=== PATIENT | female | born 2000 | race Caucasian/White ===

== ENCOUNTER 2025-10-11 18:31 | Emergency (ER) | payer BC, SELFPAY ==
--- OUTSIDE RECORDS SUMMARY | 2024-06-21 10:00 | XMS_ITS ---
Author Organization [facility] D [facility] Address [address] [place] [address] Care Team Providers Care Regulatory Compliance Manager Name Role Phone Oneyda Marie Primary Care Provider ONEYDA MARIE Unavailable Unavaila Claudia Crawford Unavailable [phone] REASON FOR VISIT med ck Encounters Encounter Location Date Provider Diagnosis [address] [address] 06/21/2024 Claudia Mabry Plan Of Treatment No Information Progress Notes * Chely SPENCER RDOB: [birth year] (24 yo F)Acc No.[id number]:06/21/2024 Progress Notes Patient: Kory Chely nicole Provider: Madhu Mabry APRN :2000 A ge:23 Y S ex:Female Date:06/21/2024 Address:[address] [place], [place] [id number] Pcp:Oneyda Marie Subjective: * Chief Complaints: * M ed ck Billing Information: * Procedure Codes: * Electronic signature of Katiana Mabry APRN on 10/11/2025 at 07:54 PM EST Sign off status: Pending * Provider: Madhu Mabry APRN Date: 0 06/21/2024 Generated for Printi ng/Faxing/eTransmitting on: 1 12/12/2024 07:54 PM EST
--- OUTSIDE RECORDS SUMMARY | 2025-01-18 16:30 | XMS_ITS ---
Author Organization [facility] Address [address] [facility] 36 [facility] [address] [place] [address] Care Team Providers Care Porcelain Slusher Name Role Phone Oneyda Marie Primary Care Provider ONEYDA MARIE Unavailable Unavaila ble Migration, Provider Unavailable Unavailable REASON FOR VISIT Multum To Medispan Conversion Encounter Medications Medication SIG (Take, Route, Frequency, Duration) Notes Start Date End Date Status Prena1 1.4 MG Tablet Chewable 1 tab(s) chewed once a day A ctive Encounters Encounter Location Date Provider Diagnosis [facility] [address] [facility] [address] [address] 01/18/2025 Provider Migration Plan Of Treatment No Information Progress Notes * Chely SPENCER RDOB: 3 (24 yo F)Acc No.[id number]:01/18/2025 Patient: Kory Chely nicole Provider: Vasu manning Migration :2000 A ge:24 Y S ex:Female Date:01/18/2025 Address:[address] [place], [place] [id number] Pcp:Oneyda Marie Subjective: * Chief Complaints: * M ultum To Medispan Conversion Encounter * Medications: T akingPrena1 1.4 MG Tablet Chewable 1 tab(s) chewed once a day Taking Prena1 1.4 MG Tablet Chewable 1 tab(s) chewed once a day Billing Information: * Procedure Codes: * Electronic signature of Prov ider Migration on 10/11/2025 at 07:54 PM EST Sign off status: Pending * Provider: Vasu manning Migration Date: 0 01/18/2025 Generated for Maya wilson/Lino/Anahi on: 1 12/12/2024 07:54 PM EST
--- OUTSIDE RECORDS SUMMARY | 2025-09-17 16:15 | XMS_ITS | Encounter Summary ---
Author Organization [facility] Address [address] [place] [address] Care Team Providers Care Architectural Technologist Name Role Phone Claudia Dorman MACEY Primary Care Provider + Encounter Details Date Type Department Care Team (Late st Contact Info) Description 09/17/2025 4:15 PM EST Lab [facility] [address] [facility] [address] [place] [phone] Social History Tobacco Use Types Packs/Day Years Used Date Smoking Tobacco: Never Passive Smoke Exposure: Never Smokeless Tobacco: Never Alcohol Use Standard Drinks/Week Comments Never 0 (1 standard drink = 0.6 oz pur e alcohol) [facility] Utilities Answer Date Recorded In the past 12 months has [employer] electric, gas, oil, or water company threatened to shut off services in your home? No 09/11/2024 AUDIT-C Answer Date Recorded Q1: How often do you have a drink containing alcohol? Never 09/11/2024 Q2: How many drinks containi ng alcohol do you have on a typical day when you are drinking? Patient does not drink Q3: How often do you have si x or more drinks on one occasion? Never 09/11/2024 Overall Financial Resource Strain (CARDIA) Answe r Date Recorded How hard is it for you to pa y for the very basics like food, housing, medical care, and heating? Not hard at all 09/11/2024 Exercise Vital Sign Answer Date Recorde d On average, how many days pe r week do you engage in moderate to strenuous exercise (like a brisk walk)? 4 days 09/11/2024 On average, how many minutes do you engage in exercise at this level? 40 min 09/11/2024 Hunger Vital Sign Answer Date Recorded Within the past 12 months, y ou worried that your food would run out before you got the money to buy more. Never true 09/11/20 24 Within the past 12 months, t he food you bought just didn't last and you didn't have money to get more. Never true 09/11/2024 PRAPARE - Transportation Answer Date Re corded In the past 12 months, has l ack of transportation kept you from medical appointments or from getting medications? No 08/17 In the past 12 months, has l ack of transportation kept you from meetings, work, or from getting things needed for daily living? No 09/11/2024 Mcalester Depression Scale Answer Date Recorded Mcalester Depression Scale Total 4 10/23/2024 The thought of harming myself has occurred to me . Never 10/23/2024 Abuse Screen Answer Date Recorded Feels Unsafe at Home or Work/School no 09/11/2024 Feels Threatened by Someone no 08/17 Does Anyone Try to Keep You From Having Contact with Others or Doing Things Outside Your Home? no 09/11/2024 Physical Signs of Abuse Present no 09/11/2024 Housing Stability Answer Date Recorded Current Living Arrangements home 08/17 Potentially Unsafe Housing Conditions none 09/11/2024 Family and Community Support Answer Tr e Recorded If for any reason you need h elp with day-to-day activities such as bathing, preparing meals, shopping, managing finances, etc., do you get the help you need? I don't need any help 09/11/2024 How often do you feel lonely or isolated from those around you? Never 09/11/2024 Employment Answer Date Recorded Do you want help finding or keeping work or a job? I do not need or want help 09/11/2024 Disabilities Answer Date Recorded Difficulty Concentrating, Remembering or Making Decisions no 09/11/2024 Difficulty Managing Errands Independently no 09/11/2024 Education Answer Date Recorded Do you want help with school or training? For example, starting or completing job training or getting a high school diploma, GED or equivalent No 09/11/2024 Preferred Language Bengali 09/11/2024 PHQ-2 Answer Date Recorded Patient Health Questionnaire-2 Score 0 09/11/2024 Comments Unknown Sex and Gender Information Value Date Recorded Sex Assigned at Female 07/30/2025 5:59 PM EDT Legal Sex Female 10:29 AM EDT Gender Identity Not on file Sexual Orientation Straight 07/30/2025 5: 59 PM EDT documented as of this encounter Plan of Treatment Upcoming Encounters Date Type Department Care Team (Late st Contact Info) Description 10/17/2025 1:30 PM EST Ancillary Procedure [facility] [address] [phone] 10/17/2025 2:00 PM EST Initial [facility] [address] [address] Jana Beatty, BACTERIOLOGIST [place] [address] [place] [phone] documented as of this encounter Visit Diagnoses Not on filedocumented in this encounter Care Teams Architectural Technologist Relationship Specialty Start Date End Date Claudia Dorman, BACTERIOLOGIST [place] [address] [place] [address] PCP - General Nurse Practitioner 09/11/24 documented as of this encounter
--- OUTSIDE RECORDS SUMMARY | 2025-09-19 13:15 | XMS_ITS | Encounter Summary ---
Author Organization [facility] Address [address] [place] [address] Care Team Providers Care Grocery Store Manager Name Role Phone Claudia Dorman MACEY Primary Care Provider + Encounter Details Date Type Department Care Team (Late st Contact Info) Description 09/19/2025 1:15 PM EST Lab [facility] [address] [facility] [address] [place] [phone] Social History Tobacco Use Types Packs/Day Years Used Date Smoking Tobacco: Never Passive Smoke Exposure: Never Smokeless Tobacco: Never Alcohol Use Standard Drinks/Week Comments Never 0 (1 standard drink = 0.6 oz pur e alcohol) [facility] Utilities Answer Date Recorded In the past 12 months has [employer] electric, gas, oil, or water company threatened [...] things needed for daily living? No 09/11/2024 Fargo Depression Scale Answer Date Recorded Fargo Depression Scale Total 4 10/23/2024 The thought [...] GED or equivalent No 09/11/2024 Preferred Language Bulgarian 09/11/2024 PHQ-2 Answer Date Recorded Patient Health [...] Description 10/17/2025 1:30 PM EST Ancillary Procedure [facility] [address] [phone] 10/17/2025 2:00 PM EST Initial [facility] [address] [phone] Jana Beatty, PINBALL MACHINE REPAIRER [address] [place] [phone] documented as of this encounter Visit Diagnoses Not on filedocumented in this encounter Care Teams Grocery Store Manager Relationship Specialty Start Date End Date Claudia Dorman, PINBALL MACHINE REPAIRER [address] [place] [address] PCP - General Nurse Practitioner 09/11/24 documented as of this encounter
[2025-10-11 19:37] VITALS: BP 96/56; PULSE 102; RESP 22; TEMP 37.7; O2SAT 99; BMI 34.3
[2025-10-11 19:53] LABS: Coronavirus 19, PCR Not Detected (NotDetected); Influenza B, PCR Not Detected (NotDetected)
--- OUTSIDE RECORDS SUMMARY | 2025-10-11 19:54 | XMS_ITS ---
Author Organization Unknown ENCOUNTERS Encounter Performer Location Date Diagnosis Diagnosis Status Emergency [facility] [address] [place] [address] [phone] Pre Admit [facility] [address] [place] [address] [id number] *Note: Encounters from your own facility or health system may be excluded. Allergies, Adverse Reactions, Alerts Allergen Type Severity Identification Date Medications Name Date Quantity Days Supplied GPI Number
--- OUTSIDE RECORDS SUMMARY | 2025-10-11 19:54 | XMS_ITS | Clinical Summary ---
Author Organization [employer] ([place], [place], [place], [place], [place]) Address [address] [place] [address] Care Team Providers Care Afterschool Babysitter Name Role Phone Unavailable Primary Care Provider Unavailabl e Allergies No known active allergies Medications escitalopram oxalate (LEXAPRO) 10 MG tablet 1 tab(s) orally once a day for 90 days Active vitamin w/zyorvph-swhr-m olate ( PLUS) 27 mg iron- 1 mg Tab Take 1 tablet by mouth daily. Active Active Problems No known active problems Social History Tobacco Use Types Packs/Day Years Used Date Smoking Tobacco: Never Smokeless Tobacco: Never Tobacco Cessation:Counseling Given: Not Answered Alcohol Use Standard Drinks/Week Comments Never 0 (1 standard drink = 0.6 oz pur e alcohol) Family and Community Support Answer Tr e Recorded Help with Day to Day Activities Not on file 01/18/2024 Feeling Lonely or Isolated Not on file 01/17 Educational Attainment Answer Date Kyle rded Speak language other than [place] Islander at home Not on file 01/18/2024 Want help with school or training Not on file 01/18/2024 Substance Use Answer Date Recorded Used prescription meds for non-medical reasons N ot on file 01/18/2024 Used illegal drugs past 12 months Not on file 01/18/2024 Comments Unknown Sex and Gender Information Value Date Recorded Sex Assigned at Not on file Legal Sex Female 2:00 PM CDT Gender Identity Not on file Sexual Orientation Not on file Last Filed Vital Signs Vital Sign Reading Time Taken Comments Blood Pressure 119/80 01/18/2024 5:24 PM EDT Pulse 91 01/18/2024 5:24 PM EDT Temperature 36.7 C (98.1 F) 01/18/2024 3:07 PM EDT Respiratory Rate 18 01/18/2024 5:24 PM EDT Oxygen Saturation 100% 01/18/2024 5:24 PM EDT Inhaled Oxygen Concentration - - Weight 92.3 kg (203 lb 8 oz) 01/18/2024 3:07 PM EDT Height 162.6 cm (5' 4 ) 01/18/2024 3:07 PM EDT Body Mass Index 34.93 01/18/2024 3:07 PM EDT Plan of Treatment Health Maintenance Due Date Last Done Comments Depression Screening (12+) 2014 Tobacco Cessation Counseling and Screening (12+) 2014 HIV Screening 2017 Meningococcal B Vaccine (1 of 2 - Standard) 2018 Hepatitis C Screening 2020 Lipid Panel 2022 Pap Smear 2023 DTAP/TDAP/TD VACCINES (7 - Tdap) 05/26/2024 05/26/2014, 11/21/2006, 04/28/2004, Additional history exists COVID-19 VACCINE ( - season) 2025 07/21/2023, 07/24/2022, 09/17/2021, Additional history exists Influenza Vaccine (#1) 2025 09/17/2021 Pneumococcal Vaccine: 0-49 Years Aged Out 11/05/2003, 07/16/2003, 04/16/2003, Additional history exists No longer eligible based on patient's age to complete this topic Insurance
--- OUTSIDE RECORDS SUMMARY | 2025-10-11 19:54 | XMS_ITS | Clinical Summary ---
Author Organization [facility] Address [address] [place] [address] Care Team Providers Care Label Cutter Name Role Phone AtkinsonJessica Claudia CHOUDHURY Primary Care Provider + Allergies No known active allergies Medications Vit-Fe Fumarate-FA (M-Emily Plus) 27-1 MG tablet TAKE 1 TABLET BY MOUTH EVERY DAY 90 tablet 3 03/26/2025 Active Active Problems Problem Noted Date Diagnosed Date follow-up 10/23/2024 care, antepartum 09/15/2024 SPROM (prolonged spontaneous rupture of membrane s) 09/11/2024 Normal labor 09/11/2024 First , third trimester 09/01/2024 Family history of Down syndrome 02/07/2024 Assessment & Plan (06/20/2024 10:55 AM EDT): Patient referred for completion of her anatomic survey. Additionally is complicated by the father the baby's first cousin having trisomy 21. Patient reports no other complications or problems this . Cell free DNA screening in this patient was low risk. Ultrasound today demonstrates a normally grown fetus with no abnormality seen. In particular there were no markers for trisomy. Amniotic fluid volume and umbilical artery Dopplers were normal. breathing was noted. Having a single first cousin with trisomy [address] this patient had a greatly increased risk for trisomy 21. Combining a normal-appearing ultrasound today with a low risk cell free DNA the patient's risk of chromosomal abnormalities should be very low. Obesity (BMI 30-39.9) 02/07/2024 01/22/2024 Anxiety and depression 01/22/2024 Overview (01/22/2024): Managed with Lexapro. Advised to wean off in third trimester. Resolved Problems Problem Noted Date Diagnosed Date Resolved Date IUD check up 01/02/2025 08/01/2025 Encounter for IUD insertion 12/08/2024 08/01/2025 40 weeks gestation of 09/11/2024 09/13/2024 Currently 09/11/2024 First , second trimester 03/11/2024 04/29/2024 care in first trimester 02/07/2024 04/29/2024 Encounters Date Type Department Care Team Description 09/22/2025 Results Follow-Up [facility] [address] [place] [phone] Curtis Salas, DIVERSIFIED CROPS FARMWORKER 09/19/2025 1:15 PM EST Lab [facility] [address] [place] [phone] 09/19/2025 Travel 09/18/2025 Results Follow-Up [facility] [facility] [address] [place] [phone] Curtis Salas, DIVERSIFIED CROPS FARMWORKER 09/17/2025 4:15 PM EST Lab [facility] [address] [place] [address] 09/17/2025 Travel 09/17/2025 Telephone [facility] [address] [place] [phone] Mila Beckett MD 08/01/2025 10:45 AM EDT Office Visit [facility] [address] [place] [phone] Jana Beatty, DIVERSIFIED CROPS FARMWORKER Encounter for IUD removal (Primary Dx) 08/01/2025 Travel from Last 3 Months Immunizations Immunization Administration Dates Next Due ABRYSVO (RSV, 60+ or pregnan t women 32-36 wks) 07/22/2024 DTaP, Unspecified 05/26/2014, 7,04/28/2004,07/16,04/16/2003,2002 Fluzone (or Fluarix & Flulav al for VFC) >6mos 07/21/2023,07/18/2019,08/24/2015 HPV Quadrivalent 07/25/2014 HPV, Unspecified 05/26/2014 Hep A, 2 Dose 06/05/2018,08/24/2015 Hep B / HiB 11/05/2003,2002 Hep B, Adolescent or Pediatric 2012 Hib (PRP-OMP) 04/16/2003 Hpv9 08/24/2015 IPV 11/21/2006, 4,04/16/2003,12/31 Influenza Inj MDCK Preserative Free 06/25/2024 Influenza Injectable Mdck Pf Quad 09/17/2021 MMR 09/13/2024(),04/28/2004 MMRV 11/21/2006 Meningococcal MCV4P (Menactra) 07/18/2019 Meningococcal, Unspecified 05/26/2014 PEDS-Pneumococcal Conjugate (PCV7) 11/05,07/16/2003,04/16/2003,12/31 Tdap 06/20/2024 Varicella 11/05/2003 Family History Medical History Relation Name Comments No Known Problems Father Diabetes Maternal Grandfather Lauren whittaker Diabetes type II Mother Relation Name Status Comments Father Alive Maternal Grandfather Lauren whittaker Mother Alive Social History Tobacco Use Types Packs/Day Years Used Date Smoking Tobacco: Never Passive Smoke Exposure: Never Smokeless Tobacco: Never Tobacco Cessation:Counseling Given: Not Answered Alcohol Use Standard Drinks/Week Comments Never 0 (1 standard drink = 0.6 oz pur e alcohol) [facility] Utilities Answer Date Recorded In the past 12 months has e [employer], gas, oil, or water [facility] threatened to shut off services in your [...] things needed for daily living? No 09/11/2024 [place] Depression Scale Answer Date Recorded [place] Depression Scale Total 4 10/23/2024 The thought [...] GED or equivalent No 09/11/2024 Preferred Language Occitan 09/11/2024 PHQ-2 Answer Date Recorded Patient Health Questionnaire-2 Score 0 09/11/2024 Comments Unknown Sex and Gender Information Value Date Recorded Sex Assigned at Female 07/30/2025 5:59 PM EDT Legal Sex Female 10:29 AM EDT Gender Identity Not on file Sexual Orientation Straight 07/30/2025 5: 59 PM EDT Last Filed Vital Signs Vital Sign Reading Time Taken Comments Blood Pressure 124/72 08/01/2025 11:14 AM EDT Pulse 78 09/13/2024 7:50 AM EST Temperature 36.8 C (98.2 F) 09/13/2024 7:50 AM EST Respiratory Rate 16 09/13/2024 7:50 AM EST Oxygen Saturation 99% 09/11/2024 10:25 AM EST Inhaled Oxygen Concentration - - Weight 87.5 kg (193 lb) 08/01/2025 11:14 AM EDT Height 162.6 cm (5' 4 ) 01/01/2025 2:36 PM EDT Body Mass Index 33.13 01/01/2025 2:36 PM EDT Plan of Treatment Upcoming Encounters Date Type Department Care Team (Late st Contact Info) Description 10/17/2025 1:30 PM EST Ancillary Procedure [facility] O[facility]YN [address] [address] [place] [address] 10/17/2025 2:00 PM EST Initial [facility]YN [address] [facility] [address] [place] [address] Rogerio Jana Severo, DIVERSIFIED CROPS FARMWORKER [facility] [address] [place] [phone] Health Maintenance Due Date Last Done Comments Annual Gynecologic Pelvic and Breast Exam 2002 MENINGOCOCCAL B VACCINE (1 of 2 - Standard) 2018 ANNUAL PHYSICAL 01/19/2024 INFLUENZA VACCINE 05/16/2025 06/25/2024, , 09/17/2021, Additional history exists PAP SMEAR 10/23/2027 10/23/2024 TDAP/TD VACCINES (2 - Td or Tdap) 06/20/2034 06/20/2024 Pneumococcal Vaccine 0-49 Aged Out 2003, 07/16/2003, 04/16/2003, Additional history exists No longer eligible based on patient's age to complete this topic HPV VACCINES Completed 08/24/2015, 07/16, 05/26/2014 MENINGOCOCCAL VACCINE Completed 07/18/2019, 014 HEPATITIS C SCREENING Completed 01/22/2024 Procedures Procedure Name Priority Date/Time Associated Diagnosis Comments HCG, B-SUBUNIT, QUANTITATIVE Routine 09/19/2025 2:41 PM EST Positive urine test HCG, B-SUBUNIT, QUANTITATIVE Routine 09/17/2025 4:09 PM EST Unconfirmed LIQUID-BASED PAP SMEAR WITH HPV GENOTYPING IF ASCUS, [facility] (JOSE,COR,[facility]AD) Routine 10/23/2024 11:46 AM EST follow-up OBSTETRIC PANEL Routine 01/22/2024 11:54 AM EDT Less than 8 weeks gestation of from Last 3 Months or Most Recently Relevant to Health Maintenance Results * HCG, B-subunit, Quantitative (09/19/2025 2:41 PM EST) Only the most recent of2 resultswithin the time period is included. HCG Quantitative Comment mIU/mL [facility] Comment: 1547.00 HCG Ranges by Gestational Age Females - non- premenopausal </= 1mIU/mL HCG Females - postmenopausal </= 7mIU/mL HCG 3 Weeks 5.4 - 72 mIU/mL 4 Weeks 10.2 - 708 mIU/mL 5 Weeks 217 - 8,245 mIU/mL 6 Weeks 152 - 32,177 mIU/mL 7 Weeks 4,059 - 153,767 mIU/mL 8 Weeks 31,366 - 149,094 mIU/mL 9 Weeks 59,109 - 135,901 mIU/mL 10 Weeks 44,186 - 170,409 mIU/mL 12 Weeks 27,107 - 201,615 mIU/mL 14 Weeks 24,302 - 93,646 mIU/mL 15 Weeks 12,540 - 69,747 mIU/mL 16 Weeks 8,904 - 55,332 mIU/mL 17 Weeks 8,240 - 51,793 mIU/mL 18 Weeks 9,649 - 55,271 mIU/mL Blood 09/19/2025 2:41 PM EST 09/19/2025 Narrative [facility] - 09/20/2025 3:35 AM EST Performed at: [address] [place] [id number] Vocational Rehabilitation Counselor: Maxi Pineda MD, Phone: [phone] Curtis Salas APRN LAB BLOOD ORDERABLES Final Result [facility] [address] [place] [address], [facility] [address] [place] [address], * LIQUID-BASED PAP SMEAR WITH HPV GENOTYPING IF ASCUS (JOSE,COR,MAD) (10/23/2024 11:46 AM EST) Reference Lab Report [facility] [address] [place] [address] or [phone] Vinicio Paez M.D., Futures Trader PATIENT NAME LABORATORY NO. [address] CHELY HANNAH [id number] AGE SEX SSN CLIENT REF # [facility] 23 2000 F [id number] [address] REQUESTING Dale [place] [address] MILA BECKETT DATE COLLECTED DATE RECEIVED DATE REPORTED 10/23/2024 10/23/2024 10/24/2024 ThinPrep Pap with Cytyc Imaging DIAGNOSIS: Negative for intraepithelial lesion or malignancy Multiple factors can influence accuracy of Pap tests; therefore, screening at regular intervals is necessary for early cancer detection. SPECIMEN ADEQUACY: SATISFACTORY FOR EVALUATION Transformation zone is present. SOURCE OF SPECIMEN: CERVICAL/ENDOCERV ICAL SLIDES: 1 CLINICAL HISTORY: follow-up [employer] SUPERVISOR: ANA CARR (ASCP) CPT CODES: [id number] 10/24/2024 8:44 AM EST [facility] ThinPrep Vial Cervix uteri structure / Unknown Collection / Unknown 10/23/2024 11:46 AM EST 10/23/2024 11:46 AM EST Mila Beckett MD PATHOLOGY/CYTOLOGY OR DERABLES Final Result [facility]
[address] [place] [address], * (ABNORMAL) Obstetric Panel (01/22/2024 11:54 AM EDT) Hepatitis B Surface Ag Negative Negative [facility] Hep C Virus Ab Non Reactive Non Reactive [facility] Comment: HCV antibody alone does not differentiate between previously resolved infection and active infection. Equivocal and Reactive HCV antibody results should be followed up with an HCV RNA test to support the diagnosis of active HCV infection. RPR Non Reactive Non Reactive [facility] Rubella Antibodies, IgG 1.42 Immune >0.99 index [facility] Comment: Non-immune <0.90 Equivocal 0.90 - 0.99 Immune >0.99 ABO Type O [facility] Rh Factor Positive [facility] Comment: Please note: Prior records for this patient's ABO / Rh type are not available for additional verification. Antibody Screen Negative Negative [facility] WBC 8.0 3.4 - 10.8 x10E3/uL [facility] RBC 4.05 3.77 - 5.28 x10E6/uL [facility] Hemoglobin 11.4 11.1 - 15.9 g/dL [facility] Hematocrit 35.1 34.0 - 46.6 % [facility] MCV 87 79 - 97 fL [facility] MCH 28.1 26.6 - 33.0 pg [facility] MCHC 32.5 31.5 - 35.7 g/dL [facility] RDW 13.8 11.7 - 15.4 % [facility] Platelets 486(H) 150 - 450 x10E3/uL [facility] Neutrophil Rel % 67 Not Estab. % [facility] Lymphocyte Rel % 24 Not Estab. % [facility] Monocyte Rel % 8 Not Estab. % [facility] Eosinophil Rel % 1 Not Estab. % [facility] Basophil Rel % 0 Not Estab. % [facility] Neutrophils Absolute 5.3 1.4 - 7.0 x10E3/uL [facility] Lymphocytes Absolute 1.9 0.7 - 3.1 x10E3/uL [facility] Monocytes Absolute 0.6 0.1 - 0.9 x10E3/uL [facility] Eosinophils Absolute 0.1 0.0 - 0.4 x10E3/uL [facility] Basophils Absolute 0.0 0.0 - 0.2 x10E3/uL [facility] Immature Granulocyte Rel % 0 Not Estab. % [facility] Immature Grans Absolute 0.0 0.0 - 0.1 x10E3/uL [facility] Blood 01/22/2024 11:5 4 AM EDT 01/22/2024 Narrative [facility] - 01/23/2024 7:10 AM EDT Performed at: - [facility] [id number] Vocational Rehabilitation Counselor: Andrea Portillo PhD, Phone: [phone] Jana Beatty DIVERSIFIED CROPS FARMWORKER LAB BLOOD ORDERABLES Final Result [facility] [address] [place] [address], [place] [phone] [facility] [address] [place] [address], [place] [phone] from Last 3 Months or Most Recently Relevant to Health Maintenance [place] [address] [address] [place] [address] EMPLOYEE Advance Directives * CPR (Attempt to Resuscitate) (Latest Code Status on File) Date Activated Date Inactivated Comments 09/11/2024 8:28 PM 09/13/2024 5:30 PM Question Answer Comments Code Status (Patient has no pulse and is not breathing): CPR (Attempt to Resuscitate) Medical Interventions (Patie nt has pulse or is breathing): Full * CPR (Attempt to Resuscitate) Date Activated Date Inactivated Comments 09/11/2024 4:32 AM 09/11/2024 8:28 PM Question Answer Comments Code Status (Patient has no pulse and is not breathing): CPR (Attempt to Resuscitate) Medical Interventions (Patie nt has pulse or is breathing): Full Support Level Of Support Discussed With: Patient Care Teams Label Cutter Relationship Specialty Start Date End Date Claudia Dorman APRN [address] [facility] [address] [place] [address] PCP - General Nurse Practitioner 09/11/24
--- OUTSIDE RECORDS SUMMARY | 2025-10-11 19:54 | XMS_ITS | Referral Summary ---
Author Organization [facility] ([place], [place], [place], [place], [place]) Address [address] [place] [address] Care Team Providers Care Cable Rigger Name Role Phone Unavailable Primary Care Provider Unavailabl e Allergies No known active allergies Medications escitalopram oxalate (LEXAPRO) 10 MG tablet 1 tab(s) orally once a day for 90 days Active vitamin w/mfkfdcx-iltx-c olate ( PLUS) 27 mg iron- 1 [...] Date Kyle rded Speak language other than Latvian at home Not on file 01/18/2024 Want [...] 01/18/2024 3:07 PM EDT Plan of Treatment Not on file [facility]
--- OUTSIDE RECORDS SUMMARY | 2025-10-11 19:55 | XMS_ITS | Encounter Summary ---
Author Organization [facility] Address [address] [place] [address] Care Team Providers Care Fur Feeder Name Role Phone CharuGissellekhoi Claudia MACEY Primary Care Provider + Encounter Details Date Type Department Care Team (Late st Contact Info) Description 09/18/2025 Results Follow-Up [facility] OBGYN [address] [place], [place] [phone] Curtis Salas APRN [address] [place] [address] [place] [address] Social History Tobacco Use Types Packs/Day Years Used Date Smoking Tobacco: Never Passive Smoke Exposure: Never Smokeless Tobacco: Never Alcohol Use Standard Drinks/Week Comments Never 0 (1 standard drink = 0.6 oz pur e alcohol) [facility] Utilities Answer Date Recorded In the past 12 months has [employer], [employer], oil, or water [employer] threatened to shut off services in your [...] things needed for daily living? No 09/11/2024 [place] Depression Scale Answer Date Recorded [place] Depression Scale Total 4 10/23/2024 The thought [...] GED or equivalent No 09/11/2024 Preferred Language Tajik 09/11/2024 PHQ-2 Answer Date Recorded Patient Health [...] Ancillary Procedure [facility] OBGYN [address] [phone] 10/17/2025 2:00 PM EST Initial [facility] OBGYN [address] [facility] [address] [place] [phone] Jana Beatty APRN [address] [address] documented as of this encounter Visit Diagnoses Not on filedocumented in this encounter Care Teams Fur Feeder Relationship Specialty Start Date End Date Claudia Dorman APRN [address] [place] [address] PCP - General Nurse Practitioner 09/11/24 documented as of this encounter
--- OUTSIDE RECORDS SUMMARY | 2025-10-11 19:55 | XMS_ITS | Patient Health Record ---
Author Organization [facility] Address [address] [place] [address] [place] [address] Care Team Providers Care Cooler Worker Name Role Phone Oneyda Marie Primary Care Provider [phone] ONEYDA MARIE Unavailable Unavaila Kayden Mayen Unavailable [phone] Migration, Provider Unavailable Unavailable Allergies No Known Allergies Reason For Referral No Information Medications Medication SIG (Take, Route, Frequency, Duration) Notes Start Date End Date Status Prena1 1.4 MG Tablet Chewable 1 tab(s) chewed once a day A ctive Immunizations Vaccine Route Administration Date Status Comme nts Menactra VFC Unknown 05/26/2014 Administered Gardisil (HPV4) VFC Unknown 05/26/2014 Administered Gardisil (HPV4) VFC IM Intramuscular 07/25/2014 Administer ed Daptacel (DTap) VFC IM Intramuscular 05/26/2014 Administer ed Social History Social History Additional Details Category Social Info Options Details Social History Occupation: Insurance Inspector Travel outside [place]: no Alcohol: no Sexually active: no Recreational drug use: no Exercise: yes Home smoke detector use: yes Caffeine: yes 1 soda daily Section Notes: Lives with grandparents, unc le, mom, 2 brothers, and one sister. Mother smokes at home Lives with grandparents, unc le, mom, 2 brothers, and one sister. Mother smokes at home Lives with grandparents, unc le, mom, 2 brothers, and one sister. Mother smokes at home Lives with grandparents, unc le, mom, 2 brothers, and one sister. Mother smokes at home Lives with mom, grandparents , and brothers. Mom smokes. Cats and dog Lives with mom, grandparents , and brothers. Mom smokes. Cats and dog Lives with grandparents, unc le, mom, 2 brothers, and one sister. Mother smokes at home Lives with grandparents, unc le, mom, 2 brothers, and one sister. Mother smokes at home Lives with grandparents, unc le, mom, 2 brothers, and one sister. Mother smokes at home Lives with grandparents, unc le, mom, 2 brothers, and one sister. Mother smokes at home Lives with grandparents, unc le, mom, 2 brothers, and one sister. Mother smokes at home Lives with grandparents, unc le, mom, 2 brothers, and one sister. Mother smokes at home Lives with grandparents, unc le, mom, 2 brothers, and one sister. Mother smokes at home Lives with grandparents, unc le, mom, 2 brothers, and one sister. Mother smokes at home Lives with grandparents, unc le, mom, 2 brothers, and one sister. Mother smokes at home Lives with mom, grandparents , and brothers. Mom smokes. Cats and dog Lives with mom, grandparents , and brothers. Mom smokes. Cats and dog Lives with mom, grandparents , and brothers. Mom smokes. Cats and dog Lives with mom, grandparents , and brothers. Mom smokes. Cats and dog Lives with mom, grandparents , and brothers. Mom smokes. Cats and dog Lives with mom, grandparents , and brothers. Mom smokes. Cats and dog Problems Problem Type SNOMED Code ICD Code Onset Dates Problem Status W/U Status Risk Notes Problem Mixed anxiety and depressive disorder (294148329) Depression with anxiety (F41.8) Active confirmed Problem Allergic rhinitis (66057828) Chronic allergic rhinitis (J30.9) Active confirmed Problem Mild intermittent asthma (424922107) Mild intermittent asthma without complication (J45.20) Active confirmed Problem Exacerbation of asthma (216347083) Mild asthma exacerbation (J45.901) Active confirmed Problem Uncomplicated moderate persistent asthma (914719488) Moderate persistent asthma without complication (J45.40) Active confirmed Problem Migraine without aura, not refractory (234088202) Migraine without aura and without status migrainosus, not intractable (G43.009) Active confirmed Problem Uncomplicated mild persistent asthma (846944651) Mild persistent asthma without complication (J45.30) Active confirmed Problem Generalized anxiety disorder (47702987) JESSICA (generalized anxiety disorder) (F41.1) Active confirmed Problem Amenorrhea (50613239) Amenorrhea (N91.2) Active confirmed Problem Arthritis of left knee (1318151749994874 ) Arthritis of knee, left (M17.12) Active confirmed Problem Intolerance to milk (finding) (100333060) 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) Active confirmed Vital Signs Heart Rate 88 /min 11/14/2024 Temperature 97.8 degrees Fahrenheit 11/14/2024 Blood pressure diastolic 70 mm Hg 11/14/2024 Height 64.5 in 11/14/2024 Blood pressure systolic 124 mm Hg 11/14/2024 Weight 217 lbs 11/14/2024 BMI 36.67 kg/m2 11/14/2024 Encounters Encounter Location Date Provider Diagnosis [facility] [address] [place] [address] 01/18/2025 Provider Migration [facility] [place] [address] [facility] [address] [place] [address] 11/14/2024 Kayden Green Routine medical exam Z00.00 Assessments Encounter Date Diagnosis (ICD Code) Assessment Notes Treatment Notes Treatment Clinical Notes Section Notes 11/14/2024 Routine medical exam (ICD-10 - Z00.00) Overall well. No health concerns at this point. Up-to-date with vaccines and labs given recent . Breast-feeding well. Continue vitamins and adequate hydration. Cleared for school employment. Non-smoker, no indication for any cancer screening Plan Of Treatment Pending Test Test Name Order Date MRI : Head, Without Contrast 02/03/2015 C-JO 01/14/2020 C-ARTHRITIS 06/09/2020 C-ARTHRITIS 01/14/2020 C-urine for GC and chlamydia antigen Insurance Providers Payer Name Payer Address Payer Phone Subscriber Number Group Number Insured Name Patient Relationship to Insured Coverage Start Date Coverage End Date [facility] [address] [address] [place] [phone] [id number] Chely Spencer Self - patient is the insured Medical (General) History Medical History History ICD Code asthma Headaches Pneumonia GERD Insomnia Surgical History Surgery Date(Month/Year) Ear tubes Hospitalization History Reason Date(Month/Year) BH- child 09/11/2024 pneumonia 2008
--- OUTSIDE RECORDS SUMMARY | 2025-10-11 19:55 | XMS_ITS | Encounter Summary ---
[facility] Organization [facility] Address [address] [place] [address] Care Team Providers Care Cabinet Builder Name Role Phone AtkinsonAnnmariekhoi Claudia MACEY Primary Care Provider + Encounter Details Date Type Department Care Team (Late st Contact Info) Description 09/17/2025 Telephone [facility] OBGYN [address] [phone] Nilsa Beckett MD 1700 [place] [address] Social History Tobacco Use Types Packs/Day Years Used Date Smoking Tobacco: Never Passive Smoke Exposure: Never Smokeless Tobacco: Never Alcohol Use Standard Drinks/Week Comments Never 0 (1 standard drink = 0.6 oz pur e alcohol) [facility] Utilities Answer Date Recorded In the past 12 months has [employer], gas, oil, or water [employer] threatened to shut off services in your [...] things needed for daily living? No 09/11/2024 [place] Depression Scale Answer Date Recorded [place] Depression Scale Total 4 10/23/2024 The thought [...] GED or equivalent No 09/11/2024 Preferred Language [place] Islander 09/11/2024 PHQ-2 Answer Date Recorded Patient Health Questionnaire-2 Score 0 09/11/2024 Comments Unknown Sex and Gender Information Value Date Recorded Sex Assigned at Female 07/30/2025 5:59 PM EDT Legal Sex Female 10:29 AM EDT Gender Identity Not on file Sexual Orientation Straight 07/30/2025 5: 59 PM EDT documented as of this encounter Miscellaneous Notes * Telephone Encounter - Curtis Salas APRN - 09/17/2025 11:02 AM EST Pt had IUD removed 08/01. Did not have a period. Has had a positive UPT. Will have her come in for hcg. She VU. * Telephone Encounter - Lorene Chahal RegSched Rep - 09/17/2025 10:01 AM EST Per hub patient had positive upt and is unsure of her LMP she just had IUD removed and cycles have been inconsistent please advise documented in this encounter Plan of Treatment Upcoming Encounters Date Type Department Care Team (Late st Contact Info) Description 10/17/2025 1:30 PM EST Ancillary Procedure [facility] OBGYN 1700 ROSANA CISNEROS REINALDO [address] [place] [phone] 10/17/2025 2:00 PM EST Initial [facility] OBGYN [address] RE[address] [place] [phone] Jana Beatty APRN [address] [place] [address] documented as of this encounter Procedures Procedure Name Priority Date/Time Associated Diagnosis Comments HCG, B-SUBUNIT, QUANTITATIVE Routine 09/17/2025 4:09 PM EST Unconfirmed documented in this encounter Results * HCG, B-subunit, Quantitative (09/17/2025 4:09 PM EST) HCG Quantitative 666 mIU/mL [facility] Comment: Female (Non-) 0 - 5 (Postmenopausal) 0 - 8 Female () Weeks of Gestation 3 6 - 71 4 10 - 750 5 958 - 3143 6 721 - 31375 7 [phone] 8 50454 -[phone] 9 [phone] -[phone] 10 [phone] -[phone] 12 54794 -147160 14 10874 - 22568 15 52607 - 23597 16 5737 - 54202 17 5384 - 72794 18 9840 - 02264 Arsen ECLIA methodology Blood 09/17/2025 4:09 PM EST 09/17/2025 Narrative [facility] (AMBULATORY) - 09/18/2025 7:37 AM EST Performed at: 01 - [address] [id number] Heat Treater Head: Andrea Portillo PhD, Phone: [phone] us Curtis Salas APRN LAB BLOOD ORDERABLES Final Result [facility] [employer] [facility] (AMBULATORY) [address] [place] [address], [place] [phone] [facility] [address] [place] [address], [place] [phone] documented in this encounter Visit Diagnoses Diagnosis Unconfirmed - Primary documented in this encounter Care Teams Cabinet Builder Relationship Specialty Start Date End Date Claudia Dorman APRN 1210 [facility] [address] [place] [address] PCP - General Nurse Practitioner 09/11/24 documented as of this encounter
--- OUTSIDE RECORDS SUMMARY | 2025-10-11 19:55 | XMS_ITS | Encounter Summary ---
Author Organization [facility] Address [address] [place] [address] Care Team Providers Care Aluminizer Name Role Phone AtkinsonAnnmarieClaudia westfall MACEY Primary Care Provider + Encounter Details Date Type Department Care Team (Latest Contact Info) Description 09/19/2025 Travel Social History Tobacco Use Types Packs/Day Years Used Date Smoking Tobacco: Never Passive Smoke Exposure: Never Smokeless Tobacco: Never Alcohol Use Standard Drinks/Week Comments Never 0 (1 standard drink = 0.6 oz pur e alcohol) [facility] Utilities Answer Date Recorded In the past 12 months has [employer], gas, oil, or water [employer] threatened to shut off services in your [...] things needed for daily living? No 09/11/2024 [place] Depression Scale Answer Date Recorded [place] Depression Scale Total 4 10/23/2024 The thought [...] GED or equivalent No 09/11/2024 Preferred Language Central African 09/11/2024 PHQ-2 Answer Date Recorded Patient Health [...] Description 10/17/2025 1:30 PM EST Ancillary Procedure [facility] OBGYN [address] [phone] 10/17/2025 2:00 PM EST Initial [facility] OBGYN [address] [phone] Jana Beatty, SALES COACH [address] [address] documented as of this encounter Visit Diagnoses Not on filedocumented in this encounter Care Teams Aluminizer Relationship Specialty Start Date End Date Claudia Dorman, SALES COACH [address] [place] [address] PCP - General Nurse Practitioner 09/11/24 documented as of this encounter
--- OUTSIDE RECORDS SUMMARY | 2025-10-11 19:55 | XMS_ITS | Encounter Summary ---
Author Organization [facility] Address [address] [place] [address] Care Team Providers Care Behavioral Health Professional Name Role Phone CharuGissellekhoi Claudia MACEY Primary Care Provider + Encounter Details Date Type Department Care Team (Late st Contact Info) Description 09/22/2025 Results Follow-Up [facility] OBGYN [address] [place], [place] [phone] Curtis Salas APRN [address] [place] [address] [place] [address] Social History Tobacco Use Types Packs/Day Years Used Date Smoking Tobacco: Never Passive Smoke Exposure: Never Smokeless Tobacco: Never Alcohol Use Standard Drinks/Week Comments Never 0 (1 standard drink = 0.6 oz pur e alcohol) [facility] Utilities Answer Date Recorded In the past 12 months has [employer], [employer], oil, or water [employer] threatened to shut off services in your [...] things needed for daily living? No 09/11/2024 [place] Depression Scale Answer Date Recorded [place] Depression Scale Total 4 10/23/2024 The thought [...] Description 10/17/2025 1:30 PM EST Ancillary Procedure [facility] OBGYN [address] [phone] 10/17/2025 2:00 PM EST Initial [facility] OBGYN 1700 [facility] [address] [place] [phone] Jana Beatty APRN [address] [address] documented as of this encounter Visit Diagnoses Not on filedocumented in this encounter Care Teams Behavioral Health Professional Relationship Specialty Start Date End Date Claudia Dorman APRN [address] [place] [address] PCP - General Nurse Practitioner 09/11/24 documented as of this encounter
--- OUTSIDE RECORDS SUMMARY | 2025-10-11 19:55 | XMS_ITS | Encounter Summary ---
Author Organization [facility] Address [address] [place] [address] Care Team Providers Care Swatcher Name Role Phone AtkinsonAnnmarieClaudia westfall MACEY Primary Care Provider + Encounter Details Date Type Department Care Team (Latest Contact Info) Description 09/17/2025 Travel Social History Tobacco Use Types Packs/Day Years Used Date Smoking Tobacco: Never Passive Smoke Exposure: Never Smokeless Tobacco: Never Alcohol Use Standard Drinks/Week Comments Never 0 (1 standard drink = 0.6 oz pur e alcohol) [facility] Utilities Answer Date Recorded In the past 12 months has [employer]), gas, oil, or water [employer] threatened to shut off services in your [...] things needed for daily living? No 09/11/2024 [place] Depression Scale Answer Date Recorded [place] Depression Scale Total 4 10/23/2024 The thought [...] GED or equivalent No 09/11/2024 Preferred Language Burkinan 09/11/2024 PHQ-2 Answer Date Recorded Patient Health [...] Description 10/17/2025 1:30 PM EST Ancillary Procedure [facility] OBGYN [address] [phone] 10/17/2025 2:00 PM EST Initial [facility] OBGYN [address] [phone] Jana Beatty, DRIVER EDUCATION ROAD INSTRUCTOR [address] [address] documented as of this encounter Visit Diagnoses Not on filedocumented in this encounter Care Teams Swatcher Relationship Specialty Start Date End Date Claudia Dorman, DRIVER EDUCATION RO[address] INSTRUCTOR [address] [place] [address] PCP - General Nurse Practitioner 09/11/24 documented as of this encounter
[2025-10-11 21:32] LABS: Influenza A, PCR Detected (NotDetected)
== END 2025-10-11 20:45 | disposition left against medical advice (07) ==
PROVIDERS: Emergency Provider Student in an Organized Health Care Education/Training Program; PCP Internal Medicine Adolescent Medicine
DX: O26.891 Other specified pregnancy related conditions, first trimester (principal); Z3A.08 8 weeks gestation of pregnancy; R50.9 Fever, unspecified
CPT/HCPCS: 87636; 99282; 99283

== ENCOUNTER 2025-10-14 19:58 | Emergency (ER) | payer BC, SELFPAY ==
--- OUTSIDE RECORDS SUMMARY | 2024-06-21 10:00 | XMS_ITS ---
Author Organization [facility] Address [address] [place] [address] Care Team Providers Care Corporate Lawyer Name Role Phone Oneyda Marie Primary Care Provider ONEYDA MARIE Unavailable Unavaila Claudia Crawford Unavailable [phone] REASON FOR VISIT med ck Encounters Encounter Location Date Provider Diagnosis [address] [address] 06/21/2024 Claudia Mabry Plan Of Treatment No Information Progress Notes * Chely SPENCER RDOB: 3 (24 yo F)Acc No.[id number]:06/21/2024 Progress Notes Patient: Kory Chely nicole Provider: Madhu Mabry APRN :2000 A ge:23 Y S ex:Female Date:06/21/2024 Address:[address] [place], [place] [phone] Pcp:Oneyda Marie Subjective: * Chief Complaints: * M ed ck Billing Information: * Procedure Codes: * Electronic signature of Katiana Mabry APRN on 10/14/2025 at 08:16 PM EST Sign off status: Pending * Provider: Madhu Mabry APRN Date: 0 06/21/2024 Generated for Printi ng/Faxing/eTransmitting on: 1 08:16 PM EST
--- OUTSIDE RECORDS SUMMARY | 2025-01-18 16:30 | XMS_ITS ---
Author Organization [facility] Address [address] [facility] [address] [facility] [address] [place] [address] Care Team Providers Care Construction Job Cost Estimator Name Role Phone Oneyda Marie Primary Care Provider [phone] ONEYDA MARIE Unavailable Unavaila ble Migration, Provider Unavailable Unavailable REASON FOR VISIT Multum To Medispan Conversion Encounter Medications Medication SIG (Take, Route, Frequency, Duration) Notes Start Date End Date Status Prena1 1.4 MG Tablet Chewable 1 tab(s) chewed once a day A ctive Encounters Encounter Location Date Provider Diagnosis [facility] [address] [facility] [address] [address] 01/18/2025 Provider Migration Plan Of Treatment No Information Progress Notes * Chely SPENCER RDOB: 3 (24 yo F)Acc No.[id number]:01/18/2025 Patient: Kory Chely nicole Provider: Vasu manning Migration :2000 A ge:24 Y S ex:Female Date:01/18/2025 Address:[address] [place], [place] [id number] Pcp:Oneyda Marie Subjective: * Chief Complaints: * M ultum To Medispan Conversion Encounter * Medications: T akingPrena1 1.4 MG Tablet Chewable 1 tab(s) chewed once a day Taking Prena1 1.4 MG Tablet Chewable 1 tab(s) chewed once a day Billing Information: * Procedure Codes: * Electronic signature of Prov ider Migration on 10/14/2025 at 08:16 PM EST Sign off status: Pending * Provider: Vasu manning Migration Date: 0 01/18/2025 Generated for Maya wilson/Lino/Anahi on: 1 08:16 PM EST
--- OUTSIDE RECORDS SUMMARY | 2025-09-17 16:15 | XMS_ITS | Encounter Summary ---
Author Organization [facility] Address [address] [place] [address] Care Team Providers Care Supervising Editor Trailer Name Role Phone Claudia Dorman MACEY Primary Care Provider + Encounter Details Date Type Department Care Team (Late st Contact Info) Description 09/17/2025 4:15 PM EST Lab [facility]YN [address] [facility] [address] [place] [phone] Social History Tobacco Use Types Packs/Day Years Used Date Smoking Tobacco: Never Passive Smoke Exposure: Never Smokeless Tobacco: Never Alcohol Use Standard Drinks/Week Comments Never 0 (1 standard drink = 0.6 oz pur e alcohol) [facility] Utilities Answer Date Recorded In the past 12 months has [employer] electric, gas, oil, or water company threatened [...] things needed for daily living? No 09/11/2024 Stanford Depression Scale Answer Date Recorded Stanford Depression Scale Total 4 10/23/2024 The thought [...] GED or equivalent No 09/11/2024 Preferred Language Swedish 09/11/2024 PHQ-2 Answer Date Recorded Patient Health [...] Description 10/17/2025 1:30 PM EST Ancillary Procedure [facility] [address] [phone] 10/17/2025 2:00 PM EST Initial [facility] [address] [phone] Jana Beatty, PASTRY ASSISTANT [address] [place] [phone] documented as of this encounter Visit Diagnoses Not on filedocumented in this encounter Care Teams Supervising Editor Trailer Relationship Specialty Start Date End Date Claudia Dorman, PASTRY ASSISTANT [address] [place] [address] PCP - General Nurse Practitioner 09/11/24 documented as of this encounter
--- OUTSIDE RECORDS SUMMARY | 2025-09-19 13:15 | XMS_ITS | Encounter Summary ---
Author Organization [facility] Address [address] [place] [address] Care Team Providers Care Chemical Detection Expert Name Role Phone Claudia Dorman MACEY Primary Care Provider + Encounter Details Date Type Department Care Team (Late st Contact Info) Description 09/19/2025 1:15 PM EST Lab [facility] [address] [facility] [address] [place] [phone] Social History Tobacco Use Types Packs/Day Years Used Date Smoking Tobacco: Never Passive Smoke Exposure: Never Smokeless Tobacco: Never Alcohol Use Standard Drinks/Week Comments Never 0 (1 standard drink = 0.6 oz pur e alcohol) [facility] Utilities Answer Date Recorded In the past 12 months has [employer] electric, gas, oil, or water company threatened [...] things needed for daily living? No 09/11/2024 Winthrop Depression Scale Answer Date Recorded Winthrop Depression Scale Total 4 10/23/2024 The thought [...] GED or equivalent No 09/11/2024 Preferred Language Vietnamese 09/11/2024 PHQ-2 Answer Date Recorded Patient Health [...] Description 10/17/2025 1:30 PM EST Ancillary Procedure [facility] [address] [phone] 10/17/2025 2:00 PM EST Initial [facility] [address] [phone] Jana Beatty, MALTED MILK MIXER [address] [place] [phone] documented as of this encounter Visit Diagnoses Not on filedocumented in this encounter Care Teams Chemical Detection Expert Relationship Specialty Start Date End Date Claudia Dorman, MALTED MILK MIXER [address] [place] [address] PCP - General Nurse Practitioner 09/11/24 documented as of this encounter
--- NOTE | 2025-10-14 20:08 | ED_ITS ---
<Statement entered by Abel Ugarte MD - 10/14/25 23:15> I was consulted by the PATRICA, and we discussed the complexity of the problems being addressed. I approved the treatment and management plan for this patient's care in the emergency department, thus performing a substantive portion of the medical decision making. Abel Ugarte MD, MICHAEL, FACEP Discharge Plan Disposition Patient Disposition: Home, Self-Care Condition: Good Prescriptions Prescriptions: New cephalexin 500 mg tablet 500 mg PO TID 7 Days Qty: 21 0RF Referrals Follow up/Referrals: Kayden Green MD [Primary Care Provider, Internal Medicine] - See instructions Clinical Impressions Clinical Impression: Threatened Instructions Patient Instructions: DI for Threatened Print Language Print Language: Kiswahili Discharge ED Provider: Abel Ugarte General Adult HPI <Nupur Rafael - Last Filed: 10/14/25 21:20> General Chief complaint: Vaginal Bleeding Stated complaint: 9 weeks and bleeding Time Seen by Provider: 10/14/25 20:10 History of Present Illness HPI narrative: 24-year-old female is approximate 9 weeks presents the emergency department concerns for vaginal bleeding for the past couple of days. Patient denies abdominal pain. She states that she has not yet had a confirmed intrauterine by her OB provider. Related Data Previous Rx's ?Medication ?Instructions ?Recorded cephalexin 500 mg tablet 500 mg PO TID 7 days #21 tab s 10/14/25 Allergies Allergy/AdvReac Type Severity Reaction Status Date / Time No Known Allergies Allergy Verified 10/11/25 19:39 PFSH <Nupur Perezkimani - Last Filed: 10/14/25 21:20> COUNTS INCLUDE 234 BEDS AT THE [facility] Disclaimer: The information contained in this section may have been updated after the patient was seen, as this information can be updated by other users. Social History Smoking Status: Never smoker alcohol intake: never current occupational status: employed Travel in the last 8 weeks?: None <Nupur Hall - Last Filed: 10/14/25 21:20> ROS Obtained: Yes other Genitourinary Female Genitourinary: Reports abnormal vaginal bleeding Physical Exam <Nupur Hall - Last Filed: 10/14/25 21:20> Narrative Physical exam: General: Awake, aware, in no acute distress HEENT: Normocephalic, no evidence of trauma CV: RRR, no murmurs, rubs, or gallops Pulm: CTA bilaterally with no rhonchi, rales, wheezes ABD: Nontender, no swelling, guarding, or rebound tenderness Psych, appropriate mood and affect General General appearance: alert Respiratory Respiratory exam: Present normal lung sounds bilaterally Cardiovascular Cardiovascular exam: Present regular rate Neurological Exam Neurological exam: Present alert Medical Decision Making <Nupur Hall - Last Filed: 10/14/25 21:20> Medical Records Screening: Per USPSTF and CDC recommendations, given the prevalence of disease in our region, it is our hospital?s policy to screen for HIV and viral Hepatitis for all patients aged 18 and over and those with ongoing risk factors. Larry Inquiry Pt receiving controlled substance: No Vital Signs: 10/14/25 20:10 10/14/25 20:37 Temperature 98.2 F Temperature Source Oral Oral Pulse Rate [Right Radial] 83 Respiratory Rate 20 Blood Pressure [Right Arm] 137/77 Blood Pressure Mean [Right Arm] 97 Blood Pressure Source [Right Arm] Automatic Cuff Blood Pressure Position [Right Arm] Sitting 02 Sat by Pulse Oximetry 100 Oxygen Delivery Method Room Air Lab Data Lab Results 10/14/25 20:18: WBC 5.0, RBC 4.33, Hgb 12.9, Hct 38.1, MCV 88.0, MCH 29.8, MCHC 33.9, RDW 13.5, Plt Count 353, MPV 10.2, Neut % (Auto) 47.9, Lymph % (Auto) 43.8, [place] % (Auto) 7.7, Eos % (Auto) 0.2, Baso % (Auto) 0.2, Neut # (Auto) 2.4, Lymph # (Auto) 2.2, [place] # (Auto) 0.4, Eos # (Auto) 0.0, Baso # (Auto) 0.0, Sodium 138, Potassium 3.6, Chloride 104, Carbon Dioxide 25, Anion Gap 12.6, BUN 8, Creatinine 0.70, Estimated Creat Clear 181, Estimated GFR 105, Est GFR ( Amer) 127, Glucose 90, Calcium 8.9, Total Bilirubin 0.4, AST 72 H, ALT 67, Alkaline Phosphatase 90, Total Protein 7.7, Albumin 4.4, Globulin 3.3 H, Albumin/Globulin Ratio 1.3 10/14/25 20:20: Urine Color Yellow, Urine Appearance Slightly cloudy, Urine pH 7.0, Ur Specific [place] <= 1.005, Urine Protein Negative, Urine Glucose (UA) Negative, Urine Ketones Negative, Urine Blood 3+ A, Urine Nitrate Negative, Urine Bilirubin Negative, Urine Urobilinogen 0.2, Ur Leukocyte Esterase Trace, Urine RBC Tntc, Urine WBC 10-20, Ur Squamous Epith Cells 20-50, Urine Bacteria 4+ 10/14/25 20:18 10/14/25 20:18 Orders (Tests/Meds): ORDERS Category Date Time Status Type and Screen Stat BBK 10/14/25 20:30 Received POCUS Point of Care (ER Only) Stat Exams 10/14/25 20:46 Ordered CBC w/Auto Diff [Complete Blood Count Auto Diff] Stat Lab 10/14/25 20:18 Completed CMP [Comprehensive Metabolic Panel] Stat Lab 10/14/25 20:18 Results HCG,Quantitative Stat Lab 10/14/25 20:18 Results Urinalysis and Microscopic Stat Lab 10/14/25 20:20 Completed Urine Culture Stat Micro 10/14/25 20:20 Received Medical Decision Narrative: Initial impression of presenting illness: 24-year-old female presents emergency department with complaints of vaginal bleeding. Patient states she is approximately 9 weeks . She has had a bleeding for 2 days. She denies other symptoms at this time. She states she has not yet had a confirmed intrauterine by her OB provider. Differential diagnosis includes but is not limited to: Urinary tract infection, miscarriage, ectopic , implantation bleeding Patient arrives hemodynamically stable, afebrile, without respiratory distress with vital signs interpreted by myself. Initial physical exam unremarkable Initial diagnostic plan: Laboratory studies, urinalysis, [id number] ultrasound Results from initial plan were reviewed and interpreted by myself, pertinent positives include: Laboratory studies were nonactionable. Urinalysis positive for too numerous to count red blood cells, 10-20 white blood cells, 20-30 epithelials with cells per high-power field as well as 4+ bacteria. [id number] ultrasound completed by ED attending Dr. Ugarte shows 1 intrauterine with a gestational age of 8 weeks and 4 days. Cardiac activity was seen on ultrasound Patient was made aware of the results and the findings, upon reevaluation patient has remained stable throughout stay, symptoms remained stable. Upon reevaluation patient resting comfortably in bed. She states she feels much better after seeing her baby on the ultrasound. Disposition: Reviewed finding today's workup with patient and informed her that she does have some bacteria in her urine. Advised her that we will treat with Keflex for asymptomatic bacturia with . Recommended that she contact her OB provider to schedule close outpatient follow-up. Instructed her to return to the emergency department with any new or worsening symptoms. Patient is agreeable to plan of care. Patient made aware of findings and had a detailed discussion with symptomatic care and return precautions, patient voiced understanding. <Abel Ugarte MD - Last Filed: 10/14/25 21:08> Vital Signs: 10/14/25 20:10 10/14/25 20:37 Temperature 98.2 F Temperature Source Oral Oral Pulse Rate [Right Radial] 83 Respiratory Rate 20 Blood Pressure [Right Arm] 137/77 Blood Pressure Mean [Right Arm] 97 Blood Pressure Source [Right Arm] Automatic Cuff Blood Pressure Position [Right Arm] Sitting 02 Sat by Pulse Oximetry 100 Oxygen Delivery Method Room Air Lab Data Lab Results 10/14/25 20:18: WBC 5.0, RBC 4.33, Hgb 12.9, Hct 38.1, MCV 88.0, MCH 29.8, MCHC 33.9, RDW 13.5, Plt Count 353, MPV 10.2, Neut % (Auto) 47.9, Lymph % (Auto) 43.8, [place] % (Auto) 7.7, Eos % (Auto) 0.2, Baso % (Auto) 0.2, Neut # (Auto) 2.4, Lymph # (Auto) 2.2, [place] # (Auto) 0.4, Eos # (Auto) 0.0, Baso # (Auto) 0.0, Sodium 138, Potassium 3.6, Chloride 104, Carbon Dioxide 25, Anion Gap 12.6, BUN 8, Creatinine 0.70, Estimated Creat Clear 181, Estimated GFR 105, Est GFR ( Amer) 127, Glucose 90, Calcium 8.9, Total Bilirubin 0.4, AST 72 H, ALT 67, Alkaline Phosphatase 90, Total Protein 7.7, Albumin 4.4, Globulin 3.3 H, Albumin/Globulin Ratio 1.3 10/14/25 20:20: Urine Color Yellow, Urine Appearance Slightly cloudy, Urine pH 7.0, Ur Specific [place] <= 1.005, Urine Protein Negative, Urine Glucose (UA) Negative, Urine Ketones Negative, Urine Blood 3+ A, Urine Nitrate Negative, Urine Bilirubin Negative, Urine Urobilinogen 0.2, Ur Leukocyte Esterase Trace, Urine RBC Tntc, Urine WBC 10-20, Ur Squamous Epith Cells 20-50, Urine Bacteria 4+ Orders (Tests/Meds): ORDERS Category Date Time Status Type and Screen Stat BBK 10/14/25 20:30 Received POCUS Point of Care (ER Only) Stat Exams 10/14/25 20:46 Ordered CBC w/Auto Diff [Complete Blood Count Auto Diff] Stat Lab 10/14/25 20:18 Completed CMP [Comprehensive Metabolic Panel] Stat Lab 10/14/25 20:18 Results HCG,Quantitative Stat Lab 10/14/25 20:18 Results Urinalysis and Microscopic Stat Lab 10/14/25 20:20 Completed Urine Culture Stat Micro 10/14/25 20:20 Received Procedures <Abel Ugarte MD - Last Filed: 10/14/25 21:08> Miscellaneous Procedure Procedure Performed: Limited OB ultrasound Indication: Vaginal bleeding Identified structures: [-Uterus -Left adnexa -Right adnexa -Pouch of Sami] Findings: Uterus: Definitive AP FHR: On serial measurements between 170 and 180 Right adnexa: Normal no free fluid Left adnexa: Normal no free Cul de sac: No free fluid Impression: Single living IUP measured at 8 weeks 4 days by crown-rump length with normal heart rate Images were saved to permanent archive The study was technically adequate CPT Transabdominal: 88873-47 This study was performed by me, and I personally interpreted all images/videos. Based on my clinical judgement, these images were adequate and did not necessitate further imaging. Critical Care <Nupur Hall - Last Filed: 10/14/25 21:20> Critical Care Time Critical Care Time: No
[2025-10-14 20:10] VITALS: BP 137/77; PULSE 83; RESP 20; TEMP 36.8; O2SAT 100; BMI 34.3
--- OUTSIDE RECORDS SUMMARY | 2025-10-14 20:16 | XMS_ITS | Clinical Summary ---
Author Organization [facility] Address [address] [place] [address] Care Team Providers Care Solvent Recoverer Name Role Phone AtkinsonJessica Claudia CHOUDHURY Primary [...] Follow-Up [facility]YN [address] [facility] [address] [place] [phone] Curtis Salas, PVC MONITOR 09/19/2025 1:15 PM EST Lab [facility]BGYN [address] [facility] [address] [place] [phone] 09/19/2025 Travel 09/18/2025 Results Follow-Up [facility] O[facility]YN [address] [facility] [address] [place] [phone] Curtis Salas, PVC MONITOR 09/17/2025 4:15 PM EST Lab [facility] OBGYN [address] [facility] [address] [place] [address] 09/17/2025 Travel 09/17/2025 Telephone [facility] [address] [facility] [address] [place] [phone] Mila Beckett MD 08/01/2025 10:45 AM EDT Office Visit [facility]YN [address] [facility] [address] [place] [phone] Jana Beatty, PVC MONITOR Encounter for IUD removal (Primary Dx) 08/01/2025 [...] drink = 0.6 oz pur e alcohol) [facility] Utilities Answer Date Recorded In the past 12 months has e [employer], gas, oil, or water [employer] threatened to shut off services in your [...] things needed for daily living? No 09/11/2024 [place] Depression Scale Answer Date Recorded [place] Depression Scale Total 4 10/23/2024 The thought [...] GED or equivalent No 09/11/2024 Preferred Language Tamazight 09/11/2024 PHQ-2 Answer Date Recorded Patient Health [...] [facility] OBGYN Vandana WAYNE REINALDO [address] [place] [address] 10/17/2025 2:00 PM EST Initial [facility] OBGYN 1700 [facility] [address] [place] [address] Rogerio Jana Severo, PVC MONITOR 1700 [facility] [address] [place] [phone] Health Maintenance Due Date Last Done Comments [...] - 09/20/2025 3:35 AM EST Performed at: [address] [place] [id number] Exhaust Emissions Inspector: Maxi Pineda MD, Phone: [phone] Curtis Salas APRN LAB BLOOD ORDERABLES Final Result [facility] ([facility]) [address] [place] [address], [facility] [address] [place] [address], * LIQUID-BASED PAP SMEAR WITH HPV GENOTYPING IF ASCUS (JOSE,COR,MAD) (10/23/2024 11:46 AM EST) Reference Lab Report [facility] [address] [place] [phone] or [phone] Vinicio Paez M.D., Hospital Recruiter PATIENT NAME LABORATORY NO. [id number] CHELY HANNAH [id number] AGE SEX SSN CLIENT REF # [facility] 23 2000 F [id number] [address] REQUESTING Dale [place] [address] MILA BECKETT DATE COLLECTED DATE RECEIVED DATE REPORTED 10/23/2024 10/23/2024 10/24/2024 ThinPrep Pap with Cytyc Imaging DIAGNOSIS: Negative for intraepithelial lesion or malignancy Multiple factors can influence accuracy of Pap tests; therefore, screening at regular intervals is necessary for early cancer detection. SPECIMEN ADEQUACY: SATISFACTORY FOR EVALUATION Transformation zone is present. SOURCE OF SPECIMEN: CERVICAL/ENDOCERV ICAL SLIDES: 1 CLINICAL HISTORY: follow-up COLLECTION TECHNICIAN: ANA CARR (ASCP) CPT CODES: [id number] 10/24/2024 8:44 AM EST [facility] ThinPrep Vial Cervix uteri structure / Unknown Collection / Unknown 10/23/2024 11:46 AM EST 10/23/2024 11:46 AM EST Mial Beckett MD PATHOLOGY/CYTOLOGY OR DERABLES Final Result [facility]
[address] [place] [address], * (ABNORMAL) Obstetric Panel (01/22/2024 11:54 AM [...] 01/23/2024 7:10 AM EDT Performed at: - [facility] [id number] Exhaust Emissions Inspector: Andrea Portillo PhD, Phone: [phone] Jana Beatty PVC MONITOR LAB BLOOD ORDERABLES Final Result [facility] [address] [place] [address], [place] [phone] [facility] [address] [place] [address], [place] [phone] from Last 3 Months or Most Recently Relevant to Health Maintenance [place] [address] EMPLOYEE Advance Directives * CPR (Attempt to [...] Of Support Discussed With: Patient Care Teams Solvent Recoverer Relationship Specialty Start Date End Date Claudia Dorman APRN [address] [facility] [address] [place] [address] PCP - General Nurse Practitioner 09/11/24
--- OUTSIDE RECORDS SUMMARY | 2025-10-14 20:16 | XMS_ITS | Referral Summary ---
Author Organization [employer] ([place], [place], [place], [place], [place]) Address [address] [place] [address] Care Team Providers Care Case Sealer Name Role Phone Unavailable Primary Care Provider Unavailabl e Allergies No known active allergies Medications escitalopram oxalate (LEXAPRO) 10 MG tablet 1 tab(s) orally once a day for 90 days Active vitamin w/oypdixg-ikvj-p olate ( PLUS) 27 mg iron- 1 [...] Date Kyle rded Speak language other than [place] Citizen at home Not on file 01/18/2024 Want [...] Plan of Treatment Not on file Insurance [facility]
--- OUTSIDE RECORDS SUMMARY | 2025-10-14 20:16 | XMS_ITS | Clinical Summary ---
Author Organization [employer] ([place], [place], [place], [place], [place]) Address [address] [place] [address] Care Team Providers Care Cheerleading Coach Name Role Phone Unavailable Primary Care Provider Unavailabl e Allergies No known active allergies Medications escitalopram oxalate (LEXAPRO) 10 MG tablet 1 tab(s) orally once a day for 90 days Active vitamin w/hhonpvh-ffnc-g olate ( PLUS) 27 mg iron- 1 [...] Date Kyle rded Speak language other than Egyptian at home Not on file 01/18/2024 Want [...]
--- OUTSIDE RECORDS SUMMARY | 2025-10-14 20:17 | XMS_ITS | Encounter Summary ---
Author Organization [facility] Address [address] [place] [address] Care Team Providers Care Learning Services Coordinator Name Role Phone AtkinsonAnnmarieClaudia westfall MACEY Primary Care Provider + Encounter Details Date Type Department Care Team (Latest Contact Info) Description 09/19/2025 Travel Social History Tobacco Use Types Packs/Day Years Used Date Smoking Tobacco: Never Passive Smoke Exposure: Never Smokeless Tobacco: Never Alcohol Use Standard Drinks/Week Comments Never 0 (1 standard drink = 0.6 oz pur e alcohol) [facility] Utilities Answer Date Recorded In the past 12 months has [employer], gas, oil, or water [employer] threatened to shut off services in your [...] things needed for daily living? No 09/11/2024 Van Depression Scale Answer Date Recorded Van Depression Scale Total 4 10/23/2024 The thought [...] GED or equivalent No 09/11/2024 Preferred Language Argentine 09/11/2024 PHQ-2 Answer Date Recorded Patient Health [...] 10/17/2025 1:30 PM EST Ancillary Procedure [facility] OBGYN [address] [phone] 10/17/2025 2:00 PM EST Initial [facility] OBGYN [address] [address] Jana Beatty, FIRE TECHNOLOGY INSTRUCTOR [address] [address] documented as of this encounter Visit Diagnoses Not on filedocumented in this encounter Care Teams Learning Services Coordinator Relationship Specialty Start Date End Date Claudia Dorman, FIRE TECHNOLOGY INSTRUCTOR [address] [place] [address] PCP - General Nurse Practitioner 09/11/24 documented as of this encounter
--- OUTSIDE RECORDS SUMMARY | 2025-10-14 20:17 | XMS_ITS | Encounter Summary ---
Author Organization [facility] Address [address] [place] [address] Care Team Providers Care Parquetry Layer Name Role Phone CharuGissellekhoi Claudia MACEY Primary Care Provider + Encounter Details Date Type Department Care Team (Late st Contact Info) Description 09/22/2025 Results Follow-Up [facility] OBGYN [address] [place], [place] [phone] Curtis Salas APRN [address] [place] [address] [place] [address] Social History Tobacco Use Types Packs/Day Years Used Date Smoking Tobacco: Never Passive Smoke Exposure: Never Smokeless Tobacco: Never Alcohol Use Standard Drinks/Week Comments Never 0 (1 standard drink = 0.6 oz pur e alcohol) [facility] Utilities Answer Date Recorded In the past 12 months has [employer], oil, or water [employer] threatened to shut off services in your [...] things needed for daily living? No 09/11/2024 [place] Depression Scale Answer Date Recorded [place] Depression Scale Total 4 10/23/2024 The thought [...] GED or equivalent No 09/11/2024 Preferred Language Urdu 09/11/2024 PHQ-2 Answer Date Recorded Patient Health [...] Description 10/17/2025 1:30 PM EST Ancillary Procedure [facility] OBGYN [address] [phone] 10/17/2025 2:00 PM EST Initial [facility] OBGYN 1700 [facility] [address] [place] [phone] Jana Beatty APRN [address] [address] documented as of this encounter Visit Diagnoses Not on filedocumented in this encounter Care Teams Parquetry Layer Relationship Specialty Start Date End Date Claudia Dorman APRN [address] [place] [address] PCP - General Nurse Practitioner 09/11/24 documented as of this encounter
--- OUTSIDE RECORDS SUMMARY | 2025-10-14 20:17 | XMS_ITS ---
Author Organization Unknown ENCOUNTERS Encounter Performer Location Date Diagnosis Diagnosis Status Pre Admit [facility] [address] [place] [address] [id number] Emergency [facility] [address] [place] [address] [id number] Emergency [facility] [address] [place] [address] [id number] LWBS Pre Admit [facility] [address] [place] [address] [id number] *Note: Encounters from your own facility or health system may be excluded. Allergies, Adverse Reactions, Alerts Allergen Type Severity Identification Date Medications Name Date Quantity Days Supplied GPI Number
--- OUTSIDE RECORDS SUMMARY | 2025-10-14 20:17 | XMS_ITS | Encounter Summary ---
Author Organization [facility] Address [address] [place] [address] Care Team Providers Care Gi Technician Name Role Phone AtkinsonAnnmariekhoi Claudia MACEY Primary Care Provider + Encounter Details Date Type Department Care Team (Late st Contact Info) Description 09/17/2025 Telephone [facility] OBGYN [address] [address] Nilsa Beckett MD [address] [place] [address] Social History Tobacco Use Types Packs/Day Years Used Date Smoking Tobacco: Never Passive Smoke Exposure: Never Smokeless Tobacco: Never Alcohol Use Standard Drinks/Week Comments Never 0 (1 standard drink = 0.6 oz pur e alcohol) [facility] Utilities Answer Date Recorded In the past 12 months has [employer], gas, oil, or water [employer] threatened to shut off services in your [...] things needed for daily living? No 09/11/2024 [place] Depression Scale Answer Date Recorded [place] Depression Scale Total 4 10/23/2024 The thought [...] GED or equivalent No 09/11/2024 Preferred Language Peruvian 09/11/2024 PHQ-2 Answer Date Recorded Patient Health [...] 1:30 PM EST Ancillary Procedure [facility] O[facility] [address] [place] [phone] 10/17/2025 2:00 PM EST Initial [facility] O[facility]YN [address] [place] [phone] Jana Beatty APRN [address] [place] [address] documented as of this encounter Procedures Procedure [...] - 71 4 10 - 750 5 075 - 0267 6 327 - 08617 7 5338 -[phone] 8 93187 -096404 9 99711 -552579 10 01448 -370349 12 14146 -031511 14 62142 - 72909 15 08170 - 32081 16 0412 - 44332 17 2080 - 21101 18 5239 - 27329 Arsen ECLIA methodology Blood 09/17/2025 4:09 PM EST 09/17/20[address] Narrative [facility] (AMBULATORY) - 09/18/2025 7:37 AM EST Performed at: 01 - [address] [id number] Vp Ancillary: Andrea Portillo PhD, Phone: [phone] us Curtis Salas APRN LAB BLOOD ORDERABLES Final Result [facility] [employer] [facility] (AMBULATORY) [address] [place] [address], [place] [phone] [facility] [address] [place] [address], [place] [phone] documented in this encounter Visit Diagnoses Diagnosis Unconfirmed - Primary documented in this encounter Care Teams Gi Technician Relationship Specialty Start Date End Date Claudia Dorman APRN [address] [facility] [address] [place] [address] PCP - General Nurse Practitioner 09/11/24 documented as of this encounter
--- OUTSIDE RECORDS SUMMARY | 2025-10-14 20:17 | XMS_ITS | Encounter Summary ---
Author Organization [facility] Address [address] [place] [address] Care Team Providers Care Firearms Sales Associate Name Role Phone CharuGissellekhoi Claudia MACEY Primary Care Provider + Encounter Details Date Type Department Care Team (Late st Contact Info) Description 09/18/2025 Results Follow-Up [facility] OBGYN [address] [place], [place] [phone] Curtis Salas APRN [address] [place] [address] [place] [address] Social History Tobacco Use Types Packs/Day Years Used Date Smoking Tobacco: Never Passive Smoke Exposure: Never Smokeless Tobacco: Never Alcohol Use Standard Drinks/Week Comments Never 0 (1 standard drink = 0.6 oz pur e alcohol) [facility] Utilities Answer Date Recorded In the past 12 months has [employer], [employer] oil, or water [employer] threatened to shut off services in your [...] things needed for daily living? No 09/11/2024 Berlin Depression Scale Answer Date Recorded [place] Depression Scale Total 4 10/23/2024 The thought [...] GED or equivalent No 09/11/2024 Preferred Language Belarusian 09/11/2024 PHQ-2 Answer Date Recorded Patient Health [...] Description 10/17/2025 1:30 PM EST Ancillary Procedure [facility] OBGYN [address] [address] 10/17/2025 2:00 PM EST Initial [facility] OBGYN 1700 [facility] [address] [place] [phone] Jana Beatty APRN [address] [address] documented as of this encounter Visit Diagnoses Not on filedocumented in this encounter Care Teams Firearms Sales Associate Relationship Specialty Start Date End Date Claudia Dorman APRN [address] [place] [address] PCP - General Nurse Practitioner 09/11/24 documented as of this encounter
--- OUTSIDE RECORDS SUMMARY | 2025-10-14 20:17 | XMS_ITS | Encounter Summary ---
Author Organization [facility] Address [address] [place] [address] Care Team Providers Care Head Banquet Waiter/Waitress Name Role Phone AtkinsonAnnmarieClaudia westfall MACEY Primary Care Provider + Encounter Details Date Type Department Care Team (Latest Contact Info) Description 09/17/2025 Travel Social History Tobacco Use Types Packs/Day Years Used Date Smoking Tobacco: Never Passive Smoke Exposure: Never Smokeless Tobacco: Never Alcohol Use Standard Drinks/Week Comments Never 0 (1 standard drink = 0.6 oz pur e alcohol) [facility] Utilities Answer Date Recorded In the past 12 months has [employer], gas, oil, or water [employer] threatened to shut off services in your [...] things needed for daily living? No 09/11/2024 Pinon Depression Scale Answer Date Recorded [place] Depression Scale Total 4 10/23/2024 The thought [...] GED or equivalent No 09/11/2024 Preferred Language Malawian 09/11/2024 PHQ-2 Answer Date Recorded Patient Health [...] Description 10/17/2025 1:30 PM EST Ancillary Procedure [facility] OBGYN [address] [address] 10/17/2025 2:00 PM EST Initial [facility] OBGYN [address] [address] Jana Beatty, FIRESTOP/CONTAINMENT WORKER [address] [address] documented as of this encounter Visit Diagnoses Not on filedocumented in this encounter Care Teams Head Banquet Waiter/Waitress Relationship Specialty Start Date End Date Claudia Dorman, FIRESTOP/CONTAINMENT WORKER [address] [place] [address] PCP - General Nurse Practitioner 09/11/24 documented as of this encounter
--- OUTSIDE RECORDS SUMMARY | 2025-10-14 20:17 | XMS_ITS | Patient Health Record ---
Author Organization [facility] Address [address] [place] [address] Care Team Providers Care Raw Silk Grader Name Role Phone Oneyda Marie Primary Care Provider ONEYDA MARIE Unavailable Unavaila Kayden Mayen Unavailable [phone] Migration, Provider Unavailable Unavailable Allergies No Known [...] Social Info Options Details Social History Occupation: [employer] Travel outside [place]: no Alcohol: no Sexually [...] Notes Problem Mixed anxiety and depressive disorder (091645517) Depression with anxiety (F41.8) Active confirmed Problem Allergic rhinitis (44633667) Chronic allergic rhinitis (J30.9) Active confirmed Problem Mild intermittent asthma (165287716) Mild intermittent asthma without complication (J45.20) Active confirmed Problem Exacerbation of asthma (862582769) Mild asthma exacerbation (J45.901) Active confirmed Problem Uncomplicated moderate persistent asthma (772542423) Moderate persistent asthma without complication (J45.40) Active confirmed Problem Migraine without aura, not refractory (508609140) Migraine without aura and without status migrainosus, not intractable (G43.009) Active confirmed Problem Uncomplicated mild persistent asthma (038725002) Mild persistent asthma without complication (J45.30) Active confirmed Problem Generalized anxiety disorder (60702061) JESSICA (generalized anxiety disorder) (F41.1) Active confirmed Problem Amenorrhea (20174939) Amenorrhea (N91.2) Active confirmed Problem Arthritis of left knee (5489151956191939 ) Arthritis of knee, left (M17.12) Active confirmed Problem Intolerance to milk (finding) (193462183) 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) Active confirmed Vital Signs Heart Rate 88 /min 11/14/2024 Temperature 97.8 degrees Fahrenheit 11/14/2024 Blood pressure diastolic 70 mm Hg 11/14/2024 Height 64.5 in 11/14/2024 Blood pressure systolic 124 mm Hg 11/14/2024 Weight 217 lbs 11/14/2024 BMI 36.67 kg/m2 11/14/2024 Encounters Encounter Location Date Provider Diagnosis [facility] [address] [place] [address] 01/18/2025 Provider Migration [facility] [place] [address] [facility] [address] [place] [address] 11/14/2024 Kayden Green Routine medical exam Z00.00 [...] Coverage Start Date Coverage End Date [employer] [facility] [address] [address] [place] [address] [id number] Chely Spencer Self - patient is the insured Medical (General) History Medical History History ICD Code asthma Headaches Pneumonia GERD Insomnia Surgical History Surgery Date(Month/Year) Ear tubes Hospitalization History Reason Date(Month/Year) BH- child 09/11/2024 pneumonia 2008
[2025-10-14 20:28] LABS: Microscopic, Urine URINE MICROSCOPIC (MICROSCOPIC)
[2025-10-14 20:31] LABS: Bilirubin,Urine Negative (Negative); Color,Urine YELLOW (Yellow); Glucose,Urine (UA) Negative (Negative); Ketones,Urine Negative (Negative); Leukocyte Esterase,Urine TRACE (Negative); PH,Urine 7.0 (5.0-8.5); Protein,Urine Negative (Negative); Specific Gravity, Urine <= 1.005 (1.005-1.030); Urobilinogen,Urine 0.2 EU/dl (0.2)
[2025-10-14 20:31] LABS: Hematocrit 38.1 % (37.0-47.0); Hemoglobin 12.9 g/dL (12.2-16.2); Immature Granulocytes % 0.2 %; Mean Corpuscular HGB Conc 33.9 g/dL (31.8-35.4); Mean Corpuscular Hemoglobin 29.8 pg (27.0-31.2); Mean Corpuscular Volume 88.0 fl (81-99); Nucleated Red Blood Cells % 0 %; Platelet Count 353 K/mm3 (142-424); Red Blood Count 4.33 M/mm3 (4.20-5.40); Red Cell Distribution Width-SD 43.9 fL; White Blood Count 5.0 K/mm3 (4.8-10.8)
[2025-10-14 20:45] LABS: Alanine Aminotransferase 67 U/L (12-78); Albumin Level 4.4 g/dl (3.5-5.0); Albumin/Globulin Ratio 1.3 (1.1-1.8); Alkaline Phosphatase 90 U/L (38-126); Anion Gap 12.6 mEq/L (5-15); Aspartate Amino Transferase 72 U/L (14-36); Bilirubin,Total 0.4 mg/dl (0.2-1.3); Blood Urea Nitrogen 8 mg/dl (7-17); Calcium 8.9 mg/dl (8.4-10.2); Carbon Dioxide 25 mmol/L (22.0-30.0); Chloride 104 mmol/L (98-107); Creatinine Clearance Estimated 181 mL/min (50-200); Creatinine,Serum 0.70 mg/dl (0.52-1.04); Estimated Glomerular Filt Rate 105 ml/min (>60); GFR (African American) 127 ML/MIN (>60); Globulin 3.3 g/dL (1.3-3.2); Glucose 90 mg/dl (74-100); Potassium 3.6 mmoL/L (3.5-5.1); Sodium 138 mmol/L (136-145); Total Protein,Serum 7.7 g/dl (6.3-8.2)
[2025-10-14 20:47] LABS: Bacteria,Urine 4+ /lpf; RBC,Urine TNTC #/hpf (0-3); Squamous Epithelial Cell,Urine 20-50 #/hpf (0-5)
[2025-10-14 21:26] VITALS: BP 121/76; PULSE 75; RESP 18; TEMP 37; O2SAT 100
--- NOTE | 2025-10-16 08:55 | PC.NURSE ---
Preliminary urine culture reviewed by Dr. Nava. No new orders received at this time.
== END 2025-10-14 21:33 | disposition home or self-care (01) ==
PROVIDERS: Nurse Practitioner Family; Emergency Provider Student in an Organized Health Care Education/Training Program; PCP Internal Medicine Adolescent Medicine
DX: O20.0 Threatened abortion (principal); Z3A.08 8 weeks gestation of pregnancy
CPT/HCPCS: 80053; 81001; 84702; 85025; 86850; 87086; 87088; 87186; 99284